=== PATIENT | female | born 1965 | race Caucasian/White ===

== ENCOUNTER → 2019-01-06 | Outpatient (CLI) | payer BC ==
--- NOTE | 2019-01-10 08:04 | MM ---
Reason for exam: screening (asymptomatic). Last mammogram was performed 7 years and 10 months ago. History: Patient is postmenopausal. Family history of premenopausal breast cancer in sister at age 65, premenopausal breast cancer in mother at age 70, and breast cancer in sister. Benign right mammotome panel of the right breast, September 05, 2010. Benign nipple discharge cytology of the right breast, March 14, 2001. Physical Findings: A clinical breast exam by your physician is recommended on an annual basis and results should be correlated with mammographic findings. MG Screening Mammo w CAD Bilateral CC and MLO view(s) were taken. No prior studies available for comparison. There are scattered fibroglandular densities. Finding: There is an equal density (isodense), oval mass in the outer quadrant, middle position of the right breast. Previous mammotome biopsy in the right breast. There is no discrete abnormality. ASSESSMENT: Probably benign, BI-RAD 3 RECOMMENDATION: Follow-up diagnostic mammogram of the right breast in 6 months.
== END | disposition home or self-care (01) ==
LOC: RADMAMWWP 07:33
PROVIDERS: ATTEND Obstetrics & Gynecology
DX: Z12.31 Encounter for screening mammogram for malignant neoplasm of breast (principal)
CPT/HCPCS: 77067

== ENCOUNTER → 2019-07-26 | Outpatient (CLI) | payer BC ==
--- NOTE | 2019-07-26 14:44 | MM ---
Reason for exam: follow-up at short interval from prior study. Last mammogram was performed 7 months ago. History: Patient is postmenopausal. Family history of premenopausal breast cancer in sister at age 65, premenopausal breast cancer in mother at age 70, and breast cancer in sister. Benign right mammotome panel of the right breast, September 05, 2010. Benign nipple discharge cytology of the right breast, March 14, 2001. Physical Findings: Nurse did not find any significant physical abnormalities on exam. MG Diagnostic Mammo RT w CAD CC and MLO view(s) were taken of the right breast. Prior study comparison: January 06, 2019, bilateral MG screening mammo w CAD. March 09, 2011, right diagnostic mammogram w/CAD. The breast tissue is heterogeneously dense. This may lower the sensitivity of mammography. Right biopsy marker noted. Right lateral posterior depth asymmetry is low density and stable. These results were verbally communicated with the patient and result sheet given to the patient on 07/26/19. ASSESSMENT: Probably benign, BI-RAD 3 RECOMMENDATION: Follow-up diagnostic mammogram of both breasts in 6 months.
== END | disposition home or self-care (01) ==
LOC: RADMAMWWP 12:44
PROVIDERS: ATTEND Obstetrics & Gynecology
DX: R92.8 Other abnormal and inconclusive findings on diagnostic imaging of breast (principal)
CPT/HCPCS: 77065

== ENCOUNTER 2024-03-14 13:23 | Emergency (ER) | payer BC ==
[2024-03-14 13:27] VITALS: RESP 18
[2024-03-14] MEDS: SODIUM CHLORIDE 0.9% 1,000 ML IV STA (14:12)
[2024-03-14] MEDS: ONDANSETRON 4 MG/2 ML VIAL IVP STA (14:13)
[2024-03-14] MEDS: KETOROLAC 15 MG/ML 1 ML VIAL IVP STA ×2 (14:13→16:23)
[2024-03-14 14:15] LABS: Basophils % (A) 1 %; Eosinophils # (A) 0.1 k/uL (0-0.7); Eosinophils % (A) 1 %; HCT 45.3 % (34.0-46.0); Lymphocytes # (A) 2.5 k/uL (1.0-4.8); Lymphocytes % (A) 26 %; MCH 29.3 pg (25.0-35.0); MCV 88.6 fL (80.0-100.0); Mean Platelet Volume 7.9; Monocytes # (A) 0.5 k/uL (0-1.0); Monocytes % (A) 5 %; Neutrophils # (A) 6.4 k/uL (1.3-7.7); Neutrophils % (A) 66 %; Platelet Count 244 k/uL (150-450); RBC 5.12 m/uL (3.80-5.40); WBC 9.6 k/uL (3.8-10.6)
[2024-03-14] MEDS: HYDROmorphone 0.5 MG/0.5 ML SYRINGE IVP STA (14:15)
[2024-03-14 14:29] LABS: ALT 14 U/L (4-34); AST 22 U/L (14-36); African American GFR (CKD) >90 (>60 ml/min/1.73 sqM); Albumin 4.3 g/dL (3.5-5.0); Alkaline Phosphatase 55 U/L (38-126); Amylase 100 U/L (30-110); Anion Gap 10 mmol/L; Blood Urea Nitrogen 11 mg/dL (7-17); Calcium 9.2 mg/dL (8.4-10.2); Carbon Dioxide 22 mmol/L (22-30); Chloride 107 mmol/L (98-107); Glucose 132 mg/dL (74-99); Lipase 339 U/L (23-300); Non-African American GFR(CKD) >90 (>60 ml/min/1.73 sqM); Sodium 139 mmol/L (137-145); Total Bilirubin 0.5 mg/dL (0.2-1.3); Total Protein 7.6 g/dL (6.3-8.2)
[2024-03-14 14:31] LABS: INR 0.9 (<1.2); Partial Thromboplastin Time 24.8 sec (22.0-30.0); Prothrombin Time 10.4 sec (10.0-12.5)
[2024-03-14 14:33] LABS: Appearance,Urine Cloudy (Clear); Bilirubin,Urine Negative (Negative); Blood,Urine Negative (Negative); Color,Urine Yellow; Glucose,Urine (UA) Negative (Negative); Ketones,Urine Negative (Negative); Leukocyte Esterase,Urine Moderate (Negative); Mucus,Urine Many /hpf; Nitrite,Urine Negative (Negative); PH, Urine 5.5 (5.0-8.0); Protein,Urine Trace (Negative); RBC,Urine 2 /hpf (0-5); Specific Gravity,Urine 1.028 (1.001-1.035); Squamous Epithelial Cell,Urine 13 /hpf (0-4); WBC,Urine 2 /hpf (0-5)
--- NOTE | 2024-03-14 14:59 | ED ---
Chest Pain HPI - General Chief Complaint: Abdominal Pain Stated Complaint: abd pain Time Seen by Provider: 03/14/24 13:30 Source: patient, RN notes reviewed Mode of arrival: ambulatory Limitations: no limitations - History of Present Illness Initial Comments: This is a 58-year-old female who presents to the emergency department for chest pain and abdominal pain. Patient was dealing with problems with right leg pain and redness last week and went to [facility]. She was diagnosed with a superficial venous thrombosis. She then states that yesterday she began to develop right upper quadrant/right-sided chest pain that resolved shortly afterwards. Today she noticed sharp pain in the right side of her neck and the pain then shot down into her right chest and right upper quadrant. Pain has remained in this area. She has some shortness of breath. Denies a history of similar symptoms in the past. MD Complaint: chest pain - Related Data Home Medications Medication Instructions Recorded Confirmed Cephalexin [Keflex] 500 mg PO DIRECTED 03/14/24 03/14/24 Previous Rx's Medication Instructions Recorded Ketorolac [Toradol] 10 mg PO Q6HR PRN #15 tab 03/14/24 Ondansetron Odt [Zofran Odt] 4 mg PO Q8HR PRN #15 tab 03/14/24 methocarbamoL [Robaxin-750] 1,500 mg PO TID PRN #30 tab 03/14/24 Allergies Allergy/AdvReac Type Severity Reaction Status Date / Time codeine AdvReac Nausea & Verified 03/14/24 14:08 Vomiting hydrocodone [From Vicodin] AdvReac Nausea & Verified 03/14/24 14:08 Vomiting Review of Systems ROS Statement: Those systems with pertinent positive or pertinent negative responses have been documented in the HPI. ROS Other: All systems not noted in ROS Statement are negative. Past Medical History Past Medical History: No Reported History History of Any Multi-Drug Resistant Organisms: None Reported Past Surgical History: No Surgical Hx Reported Past Psychological History: No Psychological Hx Reported Smoking Status: Current every day smoker Past Alcohol Use History: None Reported Past Drug Use History: None Reported General Exam Limitations: no limitations General appearance: alert, in no apparent distress Head exam: Present: atraumatic, normocephalic, normal inspection Neck exam: Present: normal inspection, full ROM. Absent: tenderness, meningismus, lymphadenopathy Respiratory exam: Present: normal lung sounds bilaterally. Absent: respiratory distress, wheezes, rales, rhonchi, stridor Cardiovascular Exam: Present: normal rhythm, tachycardia, normal heart sounds GI/Abdominal exam: Present: soft, tenderness (Right upper quadrant), normal bowel sounds. Absent: distended Neurological exam: Present: alert, oriented X3, CN II-XII intact Psychiatric exam: Present: normal affect, normal mood Skin exam: Present: warm, dry, intact, normal color. Absent: rash Course Vital Signs 03/14/24 03/14/24 03/14/24 13:24 13:47 13:51 Temperature 98.5 F Pulse Rate 110 H 103 H Pulse Rate [ 105 H [employer] ] Respiratory 18 18 Rate Blood Pressure 165/78 142/76 O2 Sat by Pulse 96 96 Oximetry 03/14/24 03/14/24 16:12 16:24 Temperature 98.0 F Pulse Rate 75 Pulse Rate [ [employer] ] Respiratory 18 Rate Blood Pressure 121/66 O2 Sat by Pulse 95 Oximetry Chest Pain [facility] This is a 58-year-old female who presents to the emergency department for neck pain, chest pain, and abdominal pain. Was pt. sent in by a medical professional or institution? @ -No Did you speak to anyone other than the patient for history? @ -No Did you review nursing and triage notes? @ -Yes, and I agree, it is accurate with regards to the patient's symptoms. Were old charts reviewed? @ -No Differential Diagnosis? @ -[Differential Chest Pain: Stable Angina, Unstable Angina, STEMI, NSTEMI Aortic Dissection, Pneumothorax, Musculoskeletal, Esophageal Spasm GERD, Cholecystitis, Pancreatitis, Zoster, this is not meant to be an all-inclusive list. EKG interpreted by me (3pts min.)? @ -EKG interpreted by me demonstrating the following: Sinus tachycardia. Ventricular rate 102 bpm, WI interval 142 ms, QRS duration 99 ms, QTc 396 ms. X-rays interpreted by me (1pt min.)? @ -Not obtained CT interpreted by me (1pt min.)? @ -CTA of the chest obtained. My interpretation identifies no evidence of a pulmonary embolus. U/S interpreted by me (1pt. min.)? @ -Gallbladder ultrasound obtained. My interpretation identifies no evidence of cholelithiasis. What testing was considered but not performed? (CT, X-rays, U/S, labs)? Why? @ -None What meds were considered but not given? Why? @ -None Did you discuss the management of the patient with other professionals? @ -No Did you reconcile home meds? @ -No Was smoking cessation discussed for >3mins.? @ -No Was critical care preformed (if so, how long)? @ -No Were there social determinants of health that impacted care today? How? (Homelessness, low income, unemployed, alcoholism, drug addiction, transportation, low edu. Level, literacy, decrease access to med. care, correction, rehab)? @ -No Was there de-escalation of care discussed even if they declined? (Discuss DNR or withdrawal of care, Hospice)? @ -No What co-morbidities impacted this encounter? (DM, HTN, Smoking, COPD, CAD, Cancer, CVA, Hep., AIDS, mental health diagnosis, sleep apnea, morbid obesity)? @ -None Was patient admitted / discharged? @ -Discharged. Lab work demonstrates an elevated D-dimer of 1.43. Lipase very mildly elevated at 339, but not to the point to suggest pancreatitis. Lab work otherwise unremarkable. Urinalysis is contaminated but negative for signs of infection. CTA of the chest reveals no evidence of a pulmonary embolus. She does have moderate bronchial wall thickening suggestive of bronchitis or asthma and small airway disease. There are also prominent groundglass changes in the basilar lower lobes that may be due to atelectasis. Prominent hilar lymph nodes are also present, which may be reactive. Gallbladder ultrasound obtained as well revealing no acute process. Her liver did appear heterogeneous. Discussed with the patient that at this point her workup does not point to a specific cause of her symptoms. Her pain was well-controlled in the emergency department and she was comfortable with discharge home. Prescription for Toradol, Robaxin, and Zofran provided for symptomatic management. She was also given a list of local primary care providers to become established for ongoing medical care and reevaluation of symptoms. Patient discharged home in stable condition. Case discussed with ED attending Dr. Clemens. Return precautions reviewed in depth, the patient is instructed to return to the emergency department with any new, worsening, or concerning symptoms. Patient verbalized understanding. Undiagnosed new problem with uncertain prognosis? @ -None Drug Therapy requiring intensive monitoring for toxicity (Heparin, Nitro, Insulin, Cardizem)? @ -None Were any procedures done? @ -None Diagnosis/symptom? @ -Neck pain, abdominal pain Acute, or Chronic, or Acute on Chronic? @ -Acute Uncomplicated (without systemic symptoms) or Complicated (systemic symptoms)? @ -Uncomplicated Side effects of treatment? @ -None Exacerbation, Progression, or Severe Exacerbation] @ -Not applicable Poses a threat to life or bodily function? @ -This will depend on the cause Disposition Clinical Impression: Abdominal pain, Neck pain Disposition: HOME SELF-CARE Instructions (If sedation given, give patient instructions): Abdominal Pain (ED), Neck Pain (ED) Additional Instructions: Return to the emergency department with any new, worsening, or concerning symptoms. Take the Toradol with Tylenol as needed for pain relief. If you choose to take the Toradol, do not take any other anti-inflammatories such as ibuprofen, take one or the other. Take the Robaxin as 1 to 2 tablets up to 3-4 times daily. Be aware that this may make you drowsy. You can take the Zofran up to every 8 hours as needed for nausea and vomiting. You can also apply warm compresses to the neck. Try to become established with a primary care provider for ongoing medical care. Prescriptions: methocarbamoL [Robaxin-750] 1,500 mg PO TID PRN #30 tab PRN Reason: Pain Ketorolac [Toradol] 10 mg PO Q6HR PRN #15 tab PRN Reason: Pain Ondansetron Odt [Zofran Odt] 4 mg PO Q8HR PRN #15 tab PRN Reason: Nausea And Vomiting Is patient prescribed a controlled substance at d/c from ED?: No Referrals: None,Stated [Primary Care Provider] - 1-2 days Forms: Area PCPs Time of Disposition: 16:09
--- NOTE | 2024-03-14 15:08 | CT ---
EXAMINATION TYPE: CT chest angio for PE DATE OF EXAM: 03/14/2024 COMPARISON: None HISTORY: 58-year-old female Chest pain, elevated d-dimer TECHNIQUE: Contiguous axial scanning of the chest performed with IV Contrast, patient injected with 1 00 ml mL of Isovue 370. Coronal/sagittal MIP reconstructions performed. CT DLP: 352.9 mGycm Automated exposure control for dose reduction was used. FINDINGS: The heart is normal size without pericardial effusion. No flattening of the interventricular septum r eflux of contrast into the hepatic veins. Aorta normal caliber with conventional arch vessel branching anatomy. Some prominent hilar lymph nodes measuring up to 1.1 cm on either side. No intrathoracic lymphadenopa thy by CT size criteria. Satisfactory opacification of pulmonary arterial system some breathing motion in the lower lungs limi ting the evaluation. No definite pulmonary embolus is seen. Moderate diffuse bronchial wall thickening. Some scattered mild mosaic attenuation in the midlungs an d lower lobes. Some groundglass change at the basilar lower lobes also noted. No consolidation or ple ural effusion. Small hiatal hernia. Visualized upper abdomen shows no gross abnormality. Bones: DISH mid and lower thoracic spine. IMPRESSION: 1. BREATHING MOTION IN THE LOWER LUNGS LIMITING THE EVALUATION. NO DEFINITE PULMONARY EMBOLUS. 2. MODERATE BRONCHIAL WALL THICKENING AND SOME SCATTERED MOSAIC ATTENUATION. CORRELATE FOR BRONCHITIS OR ASTHMA AND SMALL AIRWAYS DISEASE. 3. PROMINENT GROUNDGLASS CHANGE IN THE BASILAR LOWER LOBES MAY BE DUE TO ATELECTATIC CHANGE. INTERSTI TIAL PNEUMONITIS SUCH NSIP OR DIP ARE ALSO IN THE DIFFERENTIAL. 4. SOME PROMINENT HILAR LYMPH NODES MEASURING UP TO 1.1 CM LIKELY REACTIVE. 5. SMALL HIATAL HERNIA. [facility], , 03/14/2024 3:06 PM
[2024-03-14 15:45] LABS: Potassium 3.9 mmol/L (3.5-5.1)
--- NOTE | 2024-03-14 15:53 | US ---
EXAMINATION TYPE: US gallbladder DATE OF EXAM: 03/14/2024 COMPARISON: NONE CLINICAL INDICATION: Female, 58 years old with history of RUQ pain; TECHNIQUE: Multiple sonographic images of the right upper quadrant are obtained. FINDINGS: EXAM MEASUREMENTS: Liver Length: 16.7 cm Gallbladder Wall: 0.2 cm CBD: 0.4 cm Right Kidney: 10.5 x 4.0 x 4.1 cm Pancreas: limited by overlying midline bowel gas. Visualized pancreatic head and neck show no gross abnormal mobility. Liver: scanned intercostally, attenuating, course echotexture. Gallbladder: appears wnl Evidence for sonographic Salas's sign: no CBD: visualized portions wnl, limited by overlying bowel gas Right Kidney: wnl IMPRESSION: 1. Heterogeneous appearance to the liver. Correlate for underlying nonspecific hepatocellular disease . 2. No gallstones or biliary ductal dilatation. [facility], Workstation: [facility], 03/14/2024 3:50 PM
[2024-03-14 16:14] VITALS: BP 121/66; PULSE 75
[2024-03-14 16:26] VITALS: TEMP 98
== END 2024-03-14 16:25 | disposition home or self-care (01) ==
LOC: EC 13:23
DX: R10.9 Unspecified abdominal pain
CPT/HCPCS: 36415; 71275; 76705; 80053; 81001; 82150; 83605; 83690; 84484; 85025; 85379; 85610; 85730; 93005; 96361; 96374; 96375; 99285